=== PATIENT | female | born 1980 | race Caucasian/White ===

== ENCOUNTER → 2016-12-31 | Outpatient (CLI) | payer OTHER ==
[~2016-12-31] MED LIST: ACET-785 PO; ALBU8.5H5 IH; BUDE90AE ORAL INH; CETI10TA4 PO; FLUT9.9S EA NOSTRIL; MONT10TA15 PO; NITR100C PO; PANT40TA PO; PNV1CAPS17 PO; RANI150T12 PO; [UNRECOGNIZED DRUG - CODE] PO
== END ==
LOC: LABN 18:00
PROVIDERS: ATTEND Family Medicine
DX: R19.7 Diarrhea, unspecified (principal)
CPT/HCPCS: 87507

== ENCOUNTER 2017-04-06 14:05 | Inpatient (IN) ==
[2017-04-07] MEDS ORDERED: CITRIC ACID/SODIUM CITRATE 30ml PO ONE (05:39)
[2017-04-07] MEDS ORDERED: FAMOTIDINE PREMIX 20 MG/50 ML BAG IV ONE (05:39)
[2017-04-07] MEDS ORDERED: CEFAZOLIN 1 G INJECTION IVP ONE (05:39)
[2017-04-07] MEDS ORDERED: CEFAZOLIN PREMIX (MC ONLY) 2 GM/50 ML BAG IV ONE (05:39)
[2017-04-07] MEDS: LR 1,000 ML IV SCH ×4 (06:09→13:38)
[2017-04-07] MEDS ORDERED: FentaNYL 100 MCG/2 ML INJECTION ONE (06:34)
[2017-04-07] MEDS ORDERED: MORPHINE SULFATE PF 5mg/10ml INJ (Duramorph) EPI STA (06:34)
[2017-04-07] MEDS ORDERED: MORPHINE SULFATE PF 5mg/10ml INJ (Duramorph) ONE (06:34)
[2017-04-07] MEDS ORDERED: FentaNYL 100 MCG/2 ML INJECTION IVP ONE (06:34)
--- NOTE | 2017-04-07 06:55 | Anesthesia Preoperative Report ---
Anesthesia Epidural/Spinal Rec - Date and Time Date: 04/07/17 Procedure: Plan: Spinal - Vital Signs Vital Signs: Pulse Rate 98 04/07/17 05:37 Respiratory Rate 16 04/07/17 05:37 Blood Pressure 176/97 H 04/07/17 05:37 Pulse Oximetry 98 04/07/17 05:37 Oxygen Delivery Method Room Air NPO since: MN /Para: P:1 - Medictaions & Allergies Inpatient Medications: Current Medications Lactated Ringer's (Lactated Ringers) 1,000 mls @ 1,000 mls/hr IV .Q1H YOHANA Allergies/Adverse Reactions: Allergies Allergy/AdvReac Type Severity Reaction Status Date / Time Penicillins Allergy Unknown RASH Verified 08/23/10 16:03 Sulfa (Sulfonamide Allergy Unknown SKIN Verified 07/20/16 12:45 Antibiotics) FLUSHING AND SORES - Home Medications Home Medications: Home Medications Medication Instructions Recorded Confirmed Type Acetaminophen [Tylenol] 325 mg PO PRN PRN #0 06/14/13 04/06/17 History Albuterol Sulfate [Proair Hfa] 8.5 gm IH PRN PRN #0 06/14/13 04/06/17 History Cetirizine HCl [Zyrtec] 10 mg PO DAILY #0 06/14/13 04/06/17 History Montelukast Sodium [Singulair] 10 mg PO DAILY #0 06/14/13 04/06/17 History Budesonide Flexhaler [Pulmicort 90 1 puff ORAL INH BID PRN #0 inhaler 12/31/15 04/06/17 History Mcg Flexhaler] Fluticasone Propionate [Flonase 1 spray EA NOSTRIL DAILY #0 12/31/15 04/06/17 History Allergy Relief] Methyldopa 1 tab PO BID #0 tab 12/31/15 04/06/17 History Concept Ob Capsule 1 tab PO DAILY 04/06/17 04/06/17 History Omeprazole [Prilosec] 10 mg PO BID 04/06/17 04/06/17 History - Medical History Respiratory: Reports: Asthma (well controlled) Cardiovascular: Reports: Hypertension (controlled with meds) Gastrointestional: Reports: Gastroesophageal Reflux Disease (controlled with meds), Morbid Obesity Neuro/Musculoskeletal: Denies: HX.MS.OSAR, Back Problems, Cerebrovascular Accident, Depression, Headaches, Loss of Consciousness, Muscle Weakness, Neuromuscular Disorder, Paralysis, Paresthesia, Syncope, Seizures, Other Renal/Endocrine: DENIES: Diabetes Mellitus Type 1, Diabetes Mellitus Type 2, Renal Failure, Dialysis, Thyroid Disease, Weight Loss, Weight Gain, Other Other History: Reports: Anesthesia Reactions, Now Anesthesia Reactions: nausea and vomiting - Surgical History Hx Family Anesthesia Reaction: No History of Motion Sickness: No - Social History Smoking Status: Never smoker Substance Use Type: does not use - Pertinent Findings Lab Data: CBC and BMP 04/07/17 06:06 04/07/17 06:06 BMP 04/07/17 06:06 Sodium 144 Potassium 3.3 L Chloride 109 H Carbon Dioxide 22 BUN 9.0 Creatinine 0.5 L Glucose 97 Calcium 9.9 Liver Function 04/07/17 Range/Units 06:06 Total Bilirubin 0.40 (0.20-1.30) MG/DL AST 31 (14-36) U/L ALT 43 (9-52) U/L Alkaline Phosphatase 111 (38-126) U/L Albumin 3.5 (3.5-5.0) G/DL EKG Rhythm: Normal Sinus Rhythm - Physical Exam Respiratory Exam: lungs clear, bilateral breath sounds equal Cardiovascular Exam: regular rate and rhythm, no murmur - Airway Assessment Mallampati Score: III TMD: 2 Fingerbreadths Neck Extension: fair Overall Assessment: may be difficult intubation - ASA ASA Score: 3 - Discussion Discussion: Discussed risks/options/alternatives of anesthesia and questions answered. Patient consents. Nursing pain assessment noted. Anesthesia Discussion: spouse, family member Attestation Statement: Prior to the delivery of any anesthetic medication, I examined the patient, developed the plan, obtained the patient's consent and discussed the risk and benefits of the procedure with the patient/guardian.
[2017-04-07] MEDS: OXYTOCIN DRIP 30 UNIT/500 ML ML IV SCH ×2 (07:43→08:05)
[2017-04-07] MEDS ORDERED: HYDROCORTISONE 2.5% CREAM 30gm RECTALLY PRN (08:20)
[2017-04-07] MEDS ORDERED: ACETAMINOPHEN 500 MG TABLET PO PRN (08:20)
[2017-04-07] MEDS ORDERED: SALINE FLUSH 10ml SYRINGE IVF PRN (08:20)
[2017-04-07] MEDS ORDERED: SIMETHICONE 80 MG CHEWABLE TABLET PO PRN (08:20)
[2017-04-07] MEDS ORDERED: DiphenhydrAMINE 25 MG CAPSULE PO PRN (08:20)
[2017-04-07] MEDS ORDERED: EPHEDRINE 50mg/ml INJECTION ONE (08:21)
[2017-04-07] MEDS ORDERED: ONDANSETRON 4 MG/2 ML INJECTION ONE (08:21)
[2017-04-07] MEDS ORDERED: OXYTOCIN DRIP 30 UNIT/500 ML ML IV SCH (08:30)
[2017-04-07] MEDS ORDERED: DiphenhydrAMINE 50 MG/ML INJECTION IVP PRN (08:43)
[2017-04-07] MEDS ORDERED: ONDANSETRON 4 MG/2 ML INJECTION IVP PRN ×2 (08:43→11:03)
[2017-04-07] MEDS ORDERED: NALOXONE 2 MG/2 ML INJECTION PFS IVP PRN (08:43)
[2017-04-07] MEDS ORDERED: LABETALOL 100 MG TABLET PO SCH ×2 (10:00→21:00)
[2017-04-07] MEDS ORDERED: LABETALOL 100mg/20ml INJECTION IV ONE (11:04)
[2017-04-07] MEDS ORDERED: LABETALOL 100mg/20ml INJECTION IVP ONE ×2 (11:41→16:05)
[2017-04-07] MEDS: SIMETHICONE 80 MG CHEWABLE TABLET PO SCH ×4 (13:52→21:41)
[2017-04-07] MEDS: DOCUSATE CALCIUM 240 MG CAPSULE PO SCH (13:53)
--- NOTE | 2017-04-07 13:57 | Operative Note ---
DATE: 04/07/2017 PREOPERATIVE DIAGNOSIS 1. 36-year-old white female, G3, P1 at 37.3 weeks gestational age. 2. Chronic hypertension - medicated. 3. Polyhydramnios. 4. Previous x1. 5. Asthma. 6. Obesity POSTOPERATIVE DIAGNOSIS 1. Male , Apgars, (Braxtyn Ziggy), 3758 grams (8 pounds 5 ounces). PROCEDURES: Repeat low transverse section. EBL: 800 mL SURGEON: Arron Doll JUNIOR ENGINEER: Melvi Waters MD COMPLICATIONS: Chronic hypertension with elevated blood pressures prior to the block. DESCRIPTION OF OPERATION After adequate spinal anesthesia, the patient was prepped and draped in the left lithotomy position. Pfannenstiel skin incision was made through the old scar and carried down to the fascia which was incised transversely with the Brownlee scissors. Rectus fascia was bluntly and sharply dissected off the rectus muscles. Rectus muscles were divided. Peritoneum was isolated, entered and extended cephalad and caudad. Bladder blade was inserted and the bladder was dissected off the lower uterine segment slightly. Then a transverse incision was made in the lower uterine segment and it was extended with my fingers. There was a large amount of fluid consistent with preoperative diagnosis polyhydramnios. It was clear. The infant was delivered from the vertex position without difficulty. was bulb suctioned after delivery of head and then again after delivery of the body. Cord was doubly clamped and cut and the was received by Dr. Corey Garcia of Pediatrics. He was asked to be here because of the early term, chronic hypertension medicated, and polyhydramnios situation. Uterus was then externalized and cleansed with moist lap sponges. Uterine incision was closed with 0 Monocryl in a running locking fashion. There was some bleeding on the right edge that was taken care of with [id number] chromic and 2-0 Monocryl sutures. Once the uterus was hemostatic, tubes and ovaries appeared normal, posterior cul-de-sac was cleansed and then the uterus was returned to the abdominal cavity. Abdominal closure was then begun. Peritoneum was closed using 2-0 Vicryl in a running nonlocking fashion. Fascia was closed using 0 Vicryl in a running nonlocking fashion bilaterally from the lateral aspects medially. A 15 [place] drain was placed above the fascia and brought out the right side and sewn in place with 2-0 Monocryl. space of abdominal size was closed with 3-0 Vicryl in a running nonlocking fashion. Skin was closed with wide jacqueline in a serial fashion. Four horizontal mattress sutures were placed to keep the skin edges everted. The patient went to recovery room in stable condition. [id number]
[2017-04-07] MEDS ORDERED: METOCLOPRAMIDE 10mg/2ml INJECTION IVP PRN (14:02)
--- NOTE | 2017-04-07 14:24 | Anesthesia Postoperative Note ---
- Date and Time Date: 04/07/17 Time: 14:24 - Status Patient Participated in Evaluation: Patient Participated in Person Vital Signs: Temperature 98.0 F 04/07/17 05:37 Pulse Rate 89 04/07/17 14:00 Respiratory Rate 16 04/07/17 12:55 Blood Pressure 150/90 H 04/07/17 14:00 Pulse Oximetry 97 04/07/17 14:00 Oxygen Delivery Method Room Air Respiratory Function: Airway Patent Cardiovascular Function: Regular Pulse EKG Rhythm: Normal Sinus Rhythm Mental Status: Alert and Oriented Hydration: Taking PO Fluids Complications During Recover: None Apparent - Follow-Up Instructions Instructions: Per Surgeon
[2017-04-07] MEDS: IBUPROFEN 800 MG TABLET PO PRN (15:55)
[2017-04-07] MEDS: LABETALOL 100 MG TABLET PO SCH (18:20)
[2017-04-07] MEDS: HYDROCODONE/APAP 5mg/325mg TABLET PO PRN (20:28)
[2017-04-07] MEDS: METHYLDOPA 250 MG TABLET PO SCH (21:41)
[2017-04-08] MEDS: IBUPROFEN 800 MG TABLET PO PRN ×3 (00:17→15:54)
[2017-04-08] MEDS: HYDROCODONE/APAP 5mg/325mg TABLET PO PRN ×5 (07:47→20:03)
--- NOTE | 2017-04-08 08:14 | OB/GYN Progress Note ---
OB-PP Progress Note - General POD:: POD1 - Subjective Date: 04/08/17 Lochia: Minimal Pain: contolled (Enc. patient to take pain meds as needed. Hurts more with movement.) Voiding: french still in place (clear urine) Nausea or Vomiting Present: No - Objective Vital Signs: Last Vital Signs Temp 98.4 F 04/08/17 07:54 Pulse 95 04/08/17 07:54 Resp 16 04/08/17 07:54 BP 128/93 H 04/08/17 07:54 Pulse Ox 95 04/08/17 07:54 Urine Output: good General: alert and oriented Abdomen: fundus firm Incision: intact (dressing removed. CHAY drain in place. 25cc output overnight. ) Extremities: non-tender Edema: none Laboratory: Laboratory Results - last 24 hr 04/07/17 04/07/17 04/07/17 06:00 06:06 14:31 WBC 11.4 H RBC 3.58 L Hgb 10.4 L Hct 31.2 L MCV 87.2 MCH 29.1 MCHC 33.3 RDW Std Deviation 45.7 Plt Count 162 MPV 10.8 Antibody Identification Immune D RhIG Candidate? Not a candidate - Assessment Assessment: Repeat C/S - Plan Plan: routine care
[2017-04-08] MEDS: DOCUSATE CALCIUM 240 MG CAPSULE PO SCH (09:06)
[2017-04-08] MEDS: LABETALOL 100 MG TABLET PO SCH (09:07)
[2017-04-08] MEDS: METHYLDOPA 250 MG TABLET PO SCH ×2 (09:07→21:01)
[2017-04-08] MEDS: SIMETHICONE 80 MG CHEWABLE TABLET PO SCH ×4 (10:05→22:11)
--- NOTE | 2017-04-08 12:54 | Progress Note ---
OB PP Progress Note Free Text - Date Date: 04/08/17 - Progress Note Progress Note: pt c/o pain at CHAY drain site so I dc'd it. appears to be voiding more BP's better today - will stay on same meds for now. cortezb
[2017-04-08] MEDS: OMEPRAZOLE 10 MG CAPSULE PO SCH ×2 (14:11→20:02)
[2017-04-08] MEDS ORDERED: CALCIUM CARBONATE Chewable 750mg TABLET PO PRN (22:38)
[2017-04-08] MEDS: CALCIUM CARBONATE Chewable 500mg TABLET PO PRN (22:42)
[2017-04-09] MEDS: IBUPROFEN 800 MG TABLET PO PRN ×2 (00:10→08:26)
[2017-04-09] MEDS: HYDROCODONE/APAP 5mg/325mg TABLET PO PRN ×5 (00:10→13:15)
[2017-04-09] MEDS: OMEPRAZOLE 10 MG CAPSULE PO SCH (06:12)
[2017-04-09] MEDS: DOCUSATE CALCIUM 240 MG CAPSULE PO SCH (08:29)
[2017-04-09] MEDS: METHYLDOPA 250 MG TABLET PO SCH (08:30)
[2017-04-09] MEDS: SIMETHICONE 80 MG CHEWABLE TABLET PO SCH (09:47)
[2017-04-09] MEDS: CALCIUM CARBONATE Chewable 500mg TABLET PO PRN (09:50)
--- NOTE | 2017-04-09 12:28 | Discharge Summary ---
Discharge Plan - Med Rec/Dispo Referrals/Follow Up: Arron Doll MD [Physician] - (Thursday for jacqueline.) Prescriptions: New Hydrocodone/APAP 5/325 [[place] 5/325] 1 - 2 tab PO Q4H PRN #25 tablet PRN Reason: Pain Docusate Calcium [Surfak] 240 mg PO DAILY capsule Ibuprofen [Motrin] 800 mg PO Q8H PRN tablet PRN Reason: Pain Continue Cetirizine HCl [Zyrtec] 10 mg PO DAILY #0 Acetaminophen [Tylenol] 325 mg PO PRN PRN #0 PRN Reason: Pain Albuterol Sulfate [Proair Hfa] 8.5 gm IH PRN PRN #0 PRN Reason: Wheezing Fluticasone Propionate [Flonase Allergy Relief] 1 spray EA NOSTRIL DAILY #0 Budesonide Flexhaler [Pulmicort 90 Mcg Flexhaler] 1 puff ORAL INH BID PRN #0 inhaler PRN Reason: Wheezing Methyldopa 1 tab PO BID #0 tab Montelukast Sodium [Singulair] 10 mg PO DAILY #0 Omeprazole [Prilosec] 10 mg PO BID Concept Ob Capsule 1 tab PO DAILY - Disposition Discharged Home, Self-Care
== END 2017-04-09 15:45 | disposition home or self-care (01) | DRG 765 ==
LOC: MC 04-07 05:30
PROVIDERS: ADMIT Obstetrics & Gynecology; ATTEND Obstetrics & Gynecology